=== PATIENT | female | born 1950 | race Caucasian/White ===

== ENCOUNTER 2023-03-20 06:50 | Day surgery (SDC) | payer MEDICARE, OTHER ==
[2023-03-12 14:19] LABS: BASOPHILS % (AUTO) 0.5 % (0-1); EOSINOPHILS # (AUTO) 0.2 X10'3 (0-0.9); EOSINOPHILS % (AUTO) 2.4 % (0-6); LYMPHOCYTES # (AUTO) 2.9 X10'3 (1.1-4.8); LYMPHOCYTES % (AUTO) 40.1 % (21-51); MEAN CORPUSCULAR HEMOGLOBIN 29.3 PG (27.0-31.0); MEAN CORPUSCULAR VOLUME 88.8 FL (78-98); MEAN PLATELET VOLUME 9.5 FL (7.4-10.4); MONOCYTES # (AUTO) 0.7 X10'3 (0-0.9); MONOCYTES % (AUTO) 9.2 % (2-12); NEUTROPHILS # (AUTO) 3.5 X10'3 (1.8-7.7); NEUTROPHILS % (AUTO) 47.8 % (42-75); PRE OP HEMOGLOBIN 13.2 g/dL (12.0-16.0); PRE OP PLATELET COUNT 200 X10'3 (140-440); RED CELL DISTRIBUTION WIDTH 14.9 % (11.5-14.5)
[2023-03-12 14:34] LABS: ALBUMIN 3.8 G/DL (3.4-5.0); ALKALINE PHOSPHATASE 151 IU/L (46-116); BLOOD UREA NITROGEN 24 MG/DL (7-18); BUN/CREATININE RATIO 28.9 (10.0-20.0); CALCIUM 10.2 MG/DL (8.5-10.1); CHLORIDE 107 MMOL/L (99-107); CREATININE 0.83 MG/DL (0.40-0.90); PRE OP ALT 18 U/L (30-65); PRE OP ANION GAP 11 (8-16); PRE OP AST 17 U/L (10-37); PRE OP BILIRUB, TOTAL 0.4 MG/DL (0.0-1.0); PRE OP GLUCOSE 110 MG/DL (70-104); PRE OP POTASSIUM 3.7 MMOL/L (3.4-5.1); PRE OP SODIUM 144 MMOL/L (135-145); TOTAL CARBON DIOXIDE 26.5 MMOL/L (24-32); TOTAL PROTEIN 7.8 G/DL (6.4-8.2); eGFR 67 ML/MIN
[2023-03-12 14:59] LABS: CLARITY,URINE SLIGHTLY CLOUDY (Clear); COLOR,URINE YELLOW (Yellow); GLUCOSE, URINE NEGATIVE (Neg); KETONES,URINE NEGATIVE (Neg); LEUKOCYTE ESTERASE ,URINE NEGATIVE (Neg); NITRITES, URINE NEGATIVE (Neg); OCCULT BLOOD,URINE SMALL (Neg); PH,URINE 5.5 (4.8-8.0); PROTEIN,URINE NEGATIVE (Neg); UROBILINOGEN,URINE 0.2 E.U/dL (0.2-1.0)
[2023-03-12 15:00] LABS: UA COLLECTION TYPE CLN CATCH MIDSTREAM
[2023-03-12 15:19] LABS: BACTERIA,URINE FEW /HPF (Neg); SQUAMOUS EPITHELIAL CELL,UR FEW /LPF (FEW); WBC,URINE 0-4 /HPF (0-4)
[2023-03-20] VITALS (9 sets, daily range): BP systolic 99–147; BP diastolic 44–87
[~2023-03-20] VITALS: Ht 162.6 cm; Wt 69.5 kg
[~2023-03-20 06:50] MED LIST: APIX5TAB3 PO; DOXY20TA3 PO; FURO20TA4 PO; LEVO75TA7 PO; LISI40TA13 PO; POTA-188 PO; ROSU10TA28 PO; cefazolin 2gm/D5W 100mL 100 ML IV ONE; famotidine 20mg tablet PO ONE; ringers solution, lacted 1,000 ML IV SCH
[2023-03-20] MEDS ORDERED: ondansetron/PF 4mg/2ml inj IV PRN (08:55)
[2023-03-20] MEDS ORDERED: proCHLORperazine 10 MG/2 ml inj IV PRN (08:55)
[2023-03-20] MEDS ORDERED: meperidine/PF 25mg/ml syringe IV PRN ×3 (08:55)
[2023-03-20] MEDS ORDERED: ringers solution, lacted 1,000 ML IV SCH (08:55)
[2023-03-20] MEDS ORDERED: BUPIVAcaine/PF 2.5 mg/ml (0.25%) 30ml vial ONE (09:56)
[2023-03-20] MEDS ORDERED: bacitracin 15gm ointment TP ONE (09:56)
[2023-03-20] MEDS ORDERED: fentaNYL/PF 50MCG/1 ML 2ML syringe ONE (10:15)
[2023-03-20] MEDS ORDERED: midazolam 1 mg/ML 2ml injection ONE (10:15)
[2023-03-20] MEDS ORDERED: propofol inj 20 ML IV ONE (10:21)
[2023-03-20] MEDS ORDERED: LIDOcaine 1%/PF 5ML 10 MG/ML VIAL ONE (10:21)
[2023-03-20] MEDS ORDERED: BUPIVAcaine/PF 2.5 mg/ml (0.25%) 30ml vial IJ ONE (10:30)
[2023-03-20] MEDS ORDERED: ondansetron/PF 4mg/2ml inj ONE (11:00)
--- NOTE | 2023-03-20 11:06 | NUR ---
Received from OR via [facility] IN STABLE CONDITION , accompanied by Anesthesiologist and GOLF CART REPAIRER report given by GOLF CART REPAIRER AND Anesthesiolgist. Addendum: 03/20/23 at 1144 by Katt Ewing RN Amended: Links added.
--- NOTE | 2023-03-20 12:26 | NUR ---
PATIENT DISCHARGED FROM PACU IN STABLE CONDITION AFTER WRITTEN AND VERBAL DISCHARGE INSTRUCTIONS GIVEN. PATIENT GAVE VERBAL UNDERSTANDING OF INSTRUCTIONS GIVEN. PATIENT LEFT FACILITY VIA WHEELCHAIR WITH RN. Addendum: 03/20/23 at 1230 by Katt Ewing RN Amended: Links added.
== END 2023-03-20 12:26 | disposition home or self-care (01) ==
LOC: PAS 06:50
PROVIDERS: ATTEND Podiatrist Foot & Ankle Surgery
DX: M21.622 Bunionette of left foot (principal); M18.0 Bilateral primary osteoarthritis of first carpometacarpal joints; M19.072 Primary osteoarthritis, left ankle and foot; M19.071 Primary osteoarthritis, right ankle and foot; G47.30 Sleep apnea, unspecified; I10 Essential (primary) hypertension; Z88.5 Allergy status to narcotic agent; Z88.2 Allergy status to sulfonamides; Z91.09 Other allergy status, other than to drugs and biological substances; Z79.899 Other long term (current) drug therapy; Z79.01 Long term (current) use of anticoagulants; Z98.51 Tubal ligation status; Z90.710 Acquired absence of both cervix and uterus; Z98.890 Other specified postprocedural states; Z87.891 Personal history of nicotine dependence; Z90.49 Acquired absence of other specified parts of digestive tract; Z96.643 Presence of artificial hip joint, bilateral; Z98.1 Arthrodesis status; Z86.718 Personal history of other venous thrombosis and embolism
CPT/HCPCS: 28110; 36415; 73620; 76000; 80053; 81001; 85025; A6222; J0690; J2250; J2405; J2704; J3010; J3490; J7030; J7120; Z7506; Z7508; Z7512; A4615; A4618; A6253; A6449; A7000